=== PATIENT | female | born 1965 | race Caucasian/White ===

== ENCOUNTER 2018-01-16 14:14 | Inpatient (IN) | payer MEDICAID, OTHER ==
[~2018-01-16] VITALS: Ht 142.2 cm; Wt 80.4 kg
[~2018-01-16 14:14] MED LIST: LORA1TAB3 PO; PARO40TA PO; QUET100T PO
[2018-01-16 14:34] LABS: GLUCOSE,POINT OF CARE 380 MG/DL (70-110)
[2018-01-16] MEDS ORDERED: PARO20TA24 PO (14:36)
[2018-01-16] MEDS ORDERED: DIVA500T52 PO (14:36)
[2018-01-16] MEDS ORDERED: BUPR-93 PO (14:36)
[2018-01-16 14:40] LABS: AMPHET/METH SCREEN,URINE NEGATIVE (NEGATIVE); BARBITURATE SCREEN, URINE NEGATIVE (NEGATIVE); BENZODIAZEPINES SCREEN,URINE NEGATIVE (NEGATIVE); CANNABINOID SCREEN,URINE NEGATIVE (NEGATIVE); COCAINE SCREEN,URINE NEGATIVE (NEGATIVE); METHADONE SCREEN, URINE NEGATIVE (NEGATIVE); OPIATE SCREEN,URINE NEGATIVE (NEGATIVE)
[2018-01-16 14:41] LABS: PHENCYCLIDINE SCREEN,URINE NEGATIVE (NEGATIVE)
[2018-01-16 14:51] LABS: BASOPHILS % (AUTO) 0.7 % (0.0-2.0); EOSINOPHILS % (AUTO) 1.4 % (1.0-6.0); HEMATOCRIT 38.8 % (36-46); HEMOGLOBIN 13.3 g/dL (12.0-16.0); LYMPHOCYTES # (AUTO) 1.5 K/uL (1.0-4.8); LYMPHOCYTES % (AUTO) 23.1 % (22.0-44.0); MEAN CORPUSCULAR HEMOGLOBIN 31.7 pg (26.0-34.0); MEAN CORPUSCULAR HGB CONC 34.2 G/dL (31.0-37.0); MEAN CORPUSCULAR VOLUME 93 fL (80-100); MONOCYTES # (AUTO) 0.4 K/uL (0.1-1.0); NEUTROPHILS # (AUTO) 4.4 K/uL (1.8-7.7); NEUTROPHILS % (AUTO) 68.8 % (40.0-70.0); PLATELET COUNT (AUTO) 275 K/uL (150-450); RED CELL DISTRIBUTION WIDTH 14.6 % (11.5-14.5)
[2018-01-16 15:15] LABS: ANION GAP 9 mmol/L (8-16); CALCIUM, TOTAL 9.1 mg/dL (8.8-10.5); CARBON DIOXIDE 26 mmol/L (22-29); CHLORIDE 101 mmol/L (98-107); GLOMERULAR FILTR. RATE CALC > 60 mL/min (>60); GLUCOSE,RANDOM 387 mg/dL (70-110); SODIUM SERUM 136 mmol/L (136-145); UREA NITROGEN, BLOOD 14 mg/dL (7-18)
[2018-01-16 15:21] LABS: ALANINE AMINOTRANSFERASE 23 U/L (12-78); ALBUMIN 3.2 g/dL (3.4-5.0); ALKALINE PHOSPHATASE 144 U/L (46-116); ASPARTATE AMINOTRANSFERASE 12 U/L (15-37); BILIRUBIN,TOTAL 0.3 mg/dL (0.1-1.0); TOTAL PROTEIN, SERUM 7.1 g/dL (6.4-8.2)
[2018-01-16] MEDS ORDERED: INSULIN REGULAR, HUMAN 100 UNITS/ML SQ ONE (16:45)
[2018-01-16] MEDS ORDERED: ACETAMINOPHEN 500 MG TABLET PO ONE (16:45)
[2018-01-16] MEDS ORDERED: ZOLPIDEM TARTRATE 10 MG TABLET PO PRN (17:15)
[2018-01-16] MEDS ORDERED: HALOPERIDOL 5 MG TABLET PO PRN (17:15)
[2018-01-16] MEDS ORDERED: LORazepam 2 MG TABLET PO PRN (17:15)
[2018-01-16] MEDS ORDERED: IBUPROFEN 400 MG TABLET PO PRN (17:15)
[2018-01-16] MEDS ORDERED: QUEtiapine FUMARATE 200 MG TABLET PO PRN (17:45)
[2018-01-16 17:53] LABS: GLUCOSE,POINT OF CARE 253 MG/DL (70-110)
[2018-01-16 19:19] LABS: GLUCOSE,POINT OF CARE 337 MG/DL (70-110)
[2018-01-16 19:19] LABS: GLUCOSE,POINT OF CARE 324 MG/DL (70-110)
[2018-01-16] MEDS ORDERED: SODIUM CHLORIDE 0.9% 1,000 ML IV ONE (19:30)
[2018-01-16] MEDS ORDERED: INSULIN REGULAR, HUMAN 100 UNITS/ML IVP ONE (19:30)
[2018-01-16 20:33] LABS: GLUCOSE,POINT OF CARE 208 MG/DL (70-110)
[2018-01-16 21:01] LABS: VALPROIC ACID 5 mcg/mL (50-100)
[2018-01-16 22:04] LABS: GLUCOMETER DEV NAME(LOC) BV2S 2; GLUCOSE,POINT OF CARE 184 MG/DL (70-110)
[2018-01-16 22:10] VITALS: BP 121/72
[2018-01-16] MEDS ORDERED: GLUCAGON,HUMAN RECOMBINANT 1 MG VIAL IM PRN (22:30)
[2018-01-16] MEDS: INSULIN LISPRO 100 UNITS/ML SQ PRN (22:49)
[2018-01-17 01:31] VITALS: BP 112/73
[2018-01-17] MEDS: MetFORMIN HCL 500 MG TABLET PO SCH ×2 (06:45→16:22)
[2018-01-17] MEDS: INSULIN LISPRO 100 UNITS/ML SQ PRN ×4 (06:46→20:39)
[2018-01-17 06:48] LABS: GLUCOMETER DEV NAME(LOC) BV2S 2; GLUCOSE,POINT OF CARE 324 MG/DL (70-110)
[2018-01-17 08:12] LABS: BASOPHILS % (AUTO) 0.5 % (0.0-2.0); EOSINOPHILS % (AUTO) 2.1 % (1.0-6.0); HEMATOCRIT 38.7 % (36-46); HEMOGLOBIN 13.2 g/dL (12.0-16.0); LYMPHOCYTES % (AUTO) 31.3 % (22.0-44.0); MEAN CORPUSCULAR HEMOGLOBIN 31.6 pg (26.0-34.0); MEAN CORPUSCULAR HGB CONC 34.1 G/dL (31.0-37.0); MEAN CORPUSCULAR VOLUME 93 fL (80-100); MONOCYTES # (AUTO) 0.4 K/uL (0.1-1.0); MONOCYTES % (AUTO) 5.5 % (2.0-9.0); NEUTROPHILS # (AUTO) 3.9 K/uL (1.8-7.7); NEUTROPHILS % (AUTO) 60.6 % (40.0-70.0); PLATELET COUNT (AUTO) 284 K/uL (150-450); RED BLOOD CELL COUNT(AUTO) 4.18 MIL/uL (4.00-5.20); RED CELL DISTRIBUTION WIDTH 14.3 % (11.5-14.5)
[2018-01-17 08:30] LABS: ALANINE AMINOTRANSFERASE 25 U/L (12-78); ALBUMIN 3.2 g/dL (3.4-5.0); ALKALINE PHOSPHATASE 126 U/L (46-116); ANION GAP 9 mmol/L (8-16); ASPARTATE AMINOTRANSFERASE 15 U/L (15-37); BILIRUBIN,TOTAL 0.3 mg/dL (0.1-1.0); CALCIUM, TOTAL 9.1 mg/dL (8.8-10.5); CARBON DIOXIDE 27 mmol/L (22-29); CHLORIDE 104 mmol/L (98-107); CREATININE 0.61 mg/dL (0.60-1.30); GLOMERULAR FILTR. RATE CALC > 60 mL/min (>60); GLUCOSE,RANDOM 309 mg/dL (70-110); POTASSIUM 4.4 mmol/L (3.5-5.1); SODIUM SERUM 140 mmol/L (136-145); THYROID STIMULATING HORMONE 0.63 uIU/mL (0.36-3.74); TOTAL PROTEIN, SERUM 7.1 g/dL (6.4-8.2); UREA NITROGEN, BLOOD 12 mg/dL (7-18)
[2018-01-17 08:31] LABS: HEMOGLOBIN A1C 11.1 % (4.5-6.2)
[2018-01-17 08:34] LABS: CHOL/HDL RATIO 6.5 (3.9-5.7)
[2018-01-17 08:36] VITALS: BP 122/67
[2018-01-17 10:48] LABS: GLUCOMETER DEV NAME(LOC) BV2S 2; GLUCOSE,POINT OF CARE 318 MG/DL (70-110)
[2018-01-17 16:00] VITALS: BP 120/74
[2018-01-17] MEDS: QUEtiapine FUMARATE 200 MG TABLET PO SCH (20:25)
[2018-01-17] MEDS: DIVALPROEX SODIUM 500 MG ER TABLET PO SCH (20:25)
[2018-01-17 20:33] LABS: GLUCOMETER DEV NAME(LOC) BV2S 2; GLUCOSE,POINT OF CARE 342 MG/DL (70-110)
[2018-01-17 20:33] LABS: GLUCOMETER DEV NAME(LOC) BV2S 2; GLUCOSE,POINT OF CARE 342 MG/DL (70-110)
[2018-01-17] MEDS: SIMVASTATIN 10 MG TABLET PO SCH (20:34)
[2018-01-18 04:15] VITALS: BP 118/67
[2018-01-18 06:28] LABS: GLUCOMETER DEV NAME(LOC) BV2S 2; GLUCOSE,POINT OF CARE 312 MG/DL (70-110)
[2018-01-18] MEDS: INSULIN LISPRO 100 UNITS/ML SQ PRN ×4 (06:36→20:31)
[2018-01-18] MEDS: MetFORMIN HCL 500 MG TABLET PO SCH ×2 (07:04→16:33)
[2018-01-18 09:02] VITALS: BP 110/64
[2018-01-18] MEDS: PARoxetine HCL 20 MG TABLET PO SCH (09:23)
[2018-01-18 12:19] LABS: GLUCOMETER DEV NAME(LOC) BV2S 2; GLUCOSE,POINT OF CARE 291 MG/DL (70-110)
[2018-01-18 16:11] VITALS: BP 120/78
[2018-01-18 17:24] LABS: GLUCOMETER DEV NAME(LOC) BV2S 2; GLUCOSE,POINT OF CARE 227 MG/DL (70-110)
[2018-01-18] MEDS: QUEtiapine FUMARATE 200 MG TABLET PO SCH (20:20)
[2018-01-18] MEDS: DIVALPROEX SODIUM 500 MG ER TABLET PO SCH (20:20)
[2018-01-18] MEDS: SIMVASTATIN 10 MG TABLET PO SCH (20:21)
[2018-01-18 20:38] LABS: GLUCOMETER DEV NAME(LOC) BV2S 2; GLUCOSE,POINT OF CARE 322 MG/DL (70-110)
[2018-01-19 00:16] VITALS: BP 121/70
[2018-01-19 06:18] LABS: GLUCOMETER DEV NAME(LOC) BV2S 2; GLUCOSE,POINT OF CARE 311 MG/DL (70-110)
[2018-01-19] MEDS: MetFORMIN HCL 500 MG TABLET PO SCH (06:20)
[2018-01-19] MEDS: INSULIN LISPRO 100 UNITS/ML SQ PRN ×2 (06:34→11:43)
[2018-01-19 08:12] VITALS: BP 120/67
[2018-01-19] MEDS: PARoxetine HCL 20 MG TABLET PO SCH (09:08)
[2018-01-19 11:29] LABS: GLUCOMETER DEV NAME(LOC) BV2S 2; GLUCOSE,POINT OF CARE 317 MG/DL (70-110)
[2018-01-19] MEDS ORDERED: QUET200T29 PO (11:42)
[2018-01-19] MEDS ORDERED: PARO-37 PO (11:42)
[2018-01-19] MEDS ORDERED: DIVA500T52 PO ×2 (11:42→12:11)
[2018-01-19] MEDS ORDERED: METF-960 PO (12:11)
[2018-01-19] MEDS ORDERED: PARO20TA24 PO (12:11)
[2018-01-19] MEDS ORDERED: SIMV-259 PO (12:11)
[2018-01-19] MEDS ORDERED: QUET200T PO (12:11)
== END 2018-01-19 14:05 | disposition home or self-care (01) | DRG 751 ==
LOC: EMS 14:14 → B2S 17:31
DX: F33.3 Major depressive disorder, recurrent, severe with psychotic symptoms (principal); R45.851 Suicidal ideations; E11.65 Type 2 diabetes mellitus with hyperglycemia; I10 Essential (primary) hypertension; F41.9 Anxiety disorder, unspecified; E78.5 Hyperlipidemia, unspecified; F17.210 Nicotine dependence, cigarettes, uncomplicated; Z79.899 Other long term (current) drug therapy; Z79.4 Long term (current) use of insulin
CPT/HCPCS: 83036; 84443; 96372; 96374; 99285; G0480; J1815; J7030